=== PATIENT | male | born 1995 | race Caucasian/White ===

== ENCOUNTER 2020-10-29 19:15 | Emergency (ER) | payer OTHER, SELFPAY ==
--- NOTE | ~2020-10-29 | XR_ITS ---
EXAMINATION: XR hand RT min 3V INDICATION: Right hand pain TECHNIQUE: Three views of the right hand are obtained. COMPARISON: None available FINDINGS: There is medial soft tissue swelling of the hand. No fracture is identified. Bone alignment is normal. IMPRESSION: 1. Medial soft tissue swelling without acute osseous abnormality. Reviewed, dictated and finalized at location A.
[2020-10-29 20:35] VITALS: BP 144/88; PULSE 71; RESP 14; TEMP 36.9; O2SAT 98
--- NOTE | 2020-10-29 21:57 | ED.UPPEXIN ---
HPI - Extremity Injury (Upper) General Chief Complaint: Extremity Injury, Upper Stated Complaint: pinky/ knuckle pain Time Seen by Provider: 10/29/20 19:59 Source: patient Mode of arrival: ambulatory Limitations: no limitations History of Present Illness HPI narrative: Patient is a 25 year old male who presents complaining of right 5th digit pain. Patient reports getting finger caught in a truck door prior to arrival. He denies other injuries, denies taking over the counter medications for pain prior to arrival. Patient has full range of motion but reports pain. MD complaint: injury to: right and finger Related Data Allergies Allergy/AdvReac Type Severity Reaction Status Date / Time No Known Allergies Allergy Unknown Verified 06/03/17 09:40 Review of Systems Review of Systems: Narrative: CONSTITUTIONAL: Denies fever, chills, or sweats. EYES: Denies visual changes, redness, or discharge. ENT: Denies rhinorrhea, congestion, sore throat, or otalgia. CARDIOVASCULAR: Denies chest pain, palpitations, or edema. RESPIRATORY: Denies cough or dyspnea. GASTROINTESTINAL: Denies abdominal pain, nausea, vomiting, or diarrhea. GENITOURINARY: Denies dysuria or hematuria. SKIN: Denies rash or itching. MUSCULOSKELETAL: Right fifth finger pain NEUROLOGIC: Denies headache, numbness, dizziness, or weakness. PSYCHIATRIC: Denies anxiety or depression. [facility] Past Medical History Medical History Ear infection Enlarged adenoids Surgical History Surgical History Hx of tonsillectomy Family History Family History (Updated 10/29/20 @ 22:01 by SHAN Bonilla) Mother Diabetes mellitus Social History Social History (Updated 10/29/20 @ 22:02 by SHAN Bonilla) Smoking status: Never smoker Alcohol intake: current Alcohol use details: Occasional Substance use: never Living arrangements: with family Occupation/Education: occupation Gender identity (if verbalized by the patient): Male Comments At the time of signature, I have reviewed and agree with nursing past medical, surgical, social, and family history unless otherwise noted. Please see nursing chart for further information. There is no relevant family history pertinent to the presenting complaint. Exam Narrative: Exam Narrative: GENERAL: Well-appearing, well-nourished, and in no acute distress. HEAD: Normocephalic, atraumatic. EYES: EOMI. No redness or drainage. Conjunctiva are normal. ENT: Mucous membranes pink and moist. CHEST: No respiratory distress. HEART: Regular rate and rhythm. MUSCULOSKELETAL: No bony tenderness. EXTREMITIES: Patient has mild edema and tenderness with palpation to right fifth digit, no visible deformity noted SKIN: Warm, dry, no rash. NEURO: No focal deficits. Alert and oriented x3. Gait steady. PSYCH: Normal affect. No signs of depression or anxiety. Course Vital Signs Vital signs: Vital Signs Temperature 36.9 C 10/29/20 20:35 Pulse Rate 71 10/29/20 20:35 Respiratory Rate 14 10/29/20 20:35 Blood Pressure 144/88 H 10/29/20 20:35 Pulse Oximetry 98 10/29/20 20:35 Temperature 36.9 C 10/29/20 20:35 Pulse Rate 71 10/29/20 20:35 Respiratory Rate 14 10/29/20 20:35 Blood Pressure 144/88 H 10/29/20 20:35 Pulse Oximetry 98 10/29/20 20:35 Reviewed. Patient has been instructed to follow-up with his PCP regarding his blood pressure. Procedures Orthopedic Splinting/Casting Injury #1: Side: right Upper Extremity Injury Location: finger (5th) Upper Extremity Immobilizer: finger (other) Pre-Formed: metal foam finger splint MDM - Extremity Injury (Upper) MDM Narrative Medical decision making narrative: Patient's x-ray shows no acute osseous abnormality. Discussed with patient most likely soft tissue pain and swelling. Finger splint applied. Patient to t
== END 2020-10-29 22:38 | disposition home or self-care (01) ==
PROVIDERS: Emergency Provider Nurse Practitioner
DX: M79.644 Pain in right finger(s) (principal); M79.89 Other specified soft tissue disorders; R03.0 Elevated blood-pressure reading, without diagnosis of hypertension; W23.0XXA Caught, crushed, jammed, or pinched between moving objects, initial encounter
CPT/HCPCS: 29130; 73130; 99283

== ENCOUNTER 2022-05-15 10:55 | Emergency (ER) | payer OTHER, SELFPAY ==
[2022-05-15 11:09] VITALS: BP 169/94; PULSE 101; RESP 18; TEMP 37; O2SAT 100
--- NOTE | 2022-05-15 11:35 | ED.MALEGU ---
HPI - Male Genitourinary General Chief complaint: Urogenital-Male Stated complaint: poss std exposure Time Seen by Provider: 05/15/22 11:35 Source: patient, RN notes reviewed and old records reviewed Mode of arrival: ambulatory Limitations: no limitations History of Present Illness HPI Narrative: 26 year old male who presents to express care with concern of possible STD exposure after having one night sexual encounter. Patient states that he had one time incidence of tingling and burning from his penis but no noted drainage or any present symptoms just concern and wishes to be tested.Patient denies any fevers, no nausea or vomiting or diarrhea, denies any testicle pain or swelling or any lesions on penis. MD Complaint: possible STD exposure Related Data Home Medications Medication Instructions Recorded Confirmed No Home Medications 05/15/22 05/15/22 Allergies Allergy/AdvReac Type Severity Reaction Status Date / Time No Known Allergies Allergy Unknown Verified 05/15/22 11:18 Review of Systems Review of Systems: CONSTITUTIONAL: Denies fever, chills, or sweats. CARDIOVASCULAR: Denies chest pain, palpitations, or edema. RESPIRATORY: Denies cough or dyspnea. GASTROINTESTINAL: Denies abdominal pain, nausea, vomiting, or diarrhea. GENITOURINARY: Reports no present dysuria, frequency, urgency. Denies flank pain or hematuria.one week ago had some tingling and burning, concern of possible exposure to STD SKIN: Denies rash or itching. MUSCULOSKELETAL: Denies back pain or myalgia. Denies CVA tenderness NEUROLOGIC: Denies headache All systems reviewed & are unremarkable except as noted in HPI and below PMFSH Past Medical History Medical History (Updated 05/16/22 @ 00:00 by Indigo Hamm) Ear infection Enlarged adenoids Surgical History Surgical History (Updated 05/15/22 @ 11:44 by Kelley Casey NP) History of placement of ear tubes Hx of appendectomy Hx of tonsillectomy Family History Family History (Updated 10/29/20 @ 22:01 by Alma Levine, SHAN) Mother Diabetes mellitus Social History Social History (Updated 10/29/20 @ 22:02 by Alma Levine, [employer]) Smoking status: Never smoker Alcohol intake: current Alcohol use details: Occasional Substance use: never Living arrangements: with family Occupation/Education: occupation Gender identity (if verbalized by the patient): Male Comments At time of signature, agree with nursing past medical, surgical, social and family history. There is no relevant family history pertinent to the presenting complaint Exam Narrative: GENERAL: Well-appearing, well-nourished, and in no acute distress. HEAD: Normocephalic, atraumatic. NECK: Supple.no lymphadenopathy CHEST: Clear to auscultation. No respiratory distress.burning HEART: Regular rate and rhythm. No murmur heard. Normal peripheral pulses. ABDOMEN: Soft, nontender, nondistended, normal active bowel sounds. No CVA tenderness, denies any present burning from penis or drainage denies any testicle pain EXTREMITIES: Normal range of motion. No edema. SKIN: Warm, dry, no rash. NEURO: No focal deficits. Alert and oriented x3. Course Course Emergency Course: Patient is aware of diagnosis, understands and agrees to treatment plan.? Anticipatory guidance given.? Patient agrees to follow-up as directed and is aware of reasons to seek care at the emergency department. Portions of this record may have been created with voice recognition software Level of Care: Express Care Visit Vital Signs Vital signs: Vital Signs Temperature 37.0 C 05/15/22 11:09 Pulse Rate 101 H 05/15/22 11:09 Respiratory Rate 18 05/15/22 11:09 Blood Pressure 169/94 H 05/15/22 11:09 Pulse Oximetry 100 05/15/22 11:09 Oxygen Delivery Room Air 05/15/22 11:09 Temperature 37.0 C 05/15/22 11:09 Pulse Rate 101 H 05/15/22 11:09 Respiratory Rate 18 05/15/22 11:09 Blood Pressure 169/94 H 05/15/22 1
[2022-05-15] MEDS: cefTRIAXone 1 GM, LIDOCAINE HCL 1% LOCAL INJ 2.1 ML IM (12:08)
== END 2022-05-15 12:13 | disposition home or self-care (01) ==
PROVIDERS: Emergency Provider Registered Nurse
DX: N48.89 Other specified disorders of penis (principal)
CPT/HCPCS: 87491; 87591; 87661; 96372; 99213; G0463; J0696

== ENCOUNTER 2022-11-12 12:17 | Outpatient (CLI) | payer OTHER, SELFPAY ==
--- NOTE | ~2022-11-12 | XR_ITS ---
Clinical Indication: Chest pain PA and lateral views of the chest: Comparison: 08/14/2014 Findings: The lungs are clear, without evidence of focal consolidation or pleural effusion. Cardiome diastinal silhouette is within normal limits. Bones and soft tissues are unremarkable. Impression: Normal chest. Reviewed, dictated and finalized at location . Impression: Normal chest.
== END 2022-11-12 12:18 ==
PROVIDERS: PCP Family Medicine; Visit Provider Family Medicine
DX: R07.9 Chest pain, unspecified (principal)
CPT/HCPCS: 71046